=== PATIENT | female | born 1970 | race Caucasian/White ===

== ENCOUNTER → 2024-08-12 | Outpatient (CLI) | payer OTHER | END | disposition home or self-care (01) | LOC: ORTHO 03:15 | PROVIDERS: ATTEND Orthopaedic Surgery | DX: S61.431D Puncture wound without foreign body of right hand, subsequent encounter (principal); S69.90XA Unspecified injury of unspecified wrist, hand and finger(s), initial encounter; R60.0 Localized edema; M19.041 Primary osteoarthritis, right hand; X58.XXXA Exposure to other specified factors, initial encounter; Y93.89 Activity, other specified; Y92.89 Other specified places as the place of occurrence of the external cause; Y99.8 Other external cause status ==